=== PATIENT | male | born 1995 | race Caucasian/White ===

== ENCOUNTER 2017-05-25 22:15 | Emergency (ER) | payer BC, OTHER ==
[~2017-05-25] VITALS: Ht 185.4 cm; Wt 100.0 kg
[2017-05-25] MEDS ORDERED: ONDANSETRON 2MG/ML, 2ML ONE (22:32)
[2017-05-26] MEDS ORDERED: ONDANSETRON 2MG/ML, 2ML ONE (01:39)
[2017-05-26] MEDS ORDERED: ONDANSETRON 2MG/ML, 2ML IVPush ONE (02:00)
[2017-05-26 03:00] VITALS: BP 113/70
== END 2017-05-26 03:59 | disposition home or self-care (01) ==
LOC: ED 05-26 03:51
DX: F10.220 Alcohol dependence with intoxication, uncomplicated (principal)
CPT/HCPCS: 96374; 99284; J2405